=== PATIENT | female | born 1995 | race African-American/Black ===

== ENCOUNTER 2020-02-28 11:24 | Emergency (ER) | payer OTHER, SELFPAY ==
[~2020-02-28] VITALS: Ht 154.9 cm; Wt 59.3 kg
[2020-02-28 11:25] VITALS: BP 111/73
[2020-02-28] MEDS ORDERED: IBUP-1022 PO (11:29)
[2020-02-28] MEDS ORDERED: PENI500T PO (12:21)
[2020-02-28] MEDS ORDERED: NORC1TAB7 PO (12:21)
== END 2020-02-28 12:26 | disposition home or self-care (01) ==
LOC: M ED 11:24
DX: K04.7 Periapical abscess without sinus (principal)